=== PATIENT | male | born 1930 | race Caucasian/White ===

== ENCOUNTER 2018-09-04 16:55 | Inpatient (IN) | payer OTHER, MEDICAID ==
[~2018-09-04] VITALS: Ht 160 cm; Wt 83.9 kg
[~2018-09-04 16:55] MED LIST: BECL0.089 INH; HYDR-3229 PO; ISOS10TA9 PO; METO25TE2 PO; TAMS0.4C96 PO
[2018-09-04 17:03] VITALS: BP 118/65
--- NOTE | 2018-09-04 17:09 | NUR ---
PT TAKEN TO BED 11
--- NOTE | 2018-09-04 17:10 | NUR ---
BIB DTR C/O RIGHT ARM PAIN X 2 DAYS, NO INJURY, RIGHT ARM HOT TO TOUCH, PT IS AFRIBILE AT THIS TIME, -ROM, < 3 CAP REFILL . 10/10 PAIN IN R ARM THAT IS NON RADIATING AND CONSIDERED SHARP. DAUGHTER AT BEDSIDE. WILL CONTINUE TO MONITOR. ER MD MADE AWARE. SAFETY PRECAUTIONS IMPLEMENTED. DENIES CP.
--- NOTE | 2018-09-04 17:20 | NUR ---
Dr. Valdez evaluating patient at bedside.
[2018-09-04] MEDS ORDERED: MORPHINE SULFATE 4 MG/ML SYR IVP ONE (17:35)
--- NOTE | 2018-09-04 17:49 | NUR ---
LABS DRAWN AT IV START
[2018-09-04 17:54] LABS: BASOPHILS # (AUTO) 0.1 K/uL (0.00-0.22); BASOPHILS % (AUTO) 0.7 % (0.0-2.0); EOSINOPHILS % (AUTO) 0.2 % (0.0-4.0); HEMATOCRIT 44.6 % (36-52); HEMOGLOBIN 14.4 g/dL (12.0-18.0); LYMPHOCYTES # (AUTO) 0.9 K/uL (2.0-11.5); LYMPHOCYTES % (AUTO) 6.6 % (20.5-51.1); MEAN CORPUSCULAR HEMOGLOBIN 30 pg (27-31); MEAN CORPUSCULAR HGB CONC 32 g/dL (33-37); MONOCYTES # (AUTO) 1.4 K/uL (0.8-1.0); MONOCYTES % (AUTO) 10.9 % (1.7-9.3); NEUTROPHILS # (AUTO) 10.8 K/uL (1.8-7.7); NEUTROPHILS % (AUTO) 81.6 % (42.2-75.2); PLATELET COUNT (AUTO) 182 K/uL (140-450); RED BLOOD CELL COUNT(AUTO) 4.79 MIL/uL (4.20-6.10); WHITE BLOOD COUNT (AUTO) 13.2 K/uL (4.8-10.8)
[2018-09-04 18:03] LABS: ANION GAP 14.3 (8-16); CARBON DIOXIDE 25.1 mmol/L (21-32); CHLORIDE 105 mmol/L (98-107); CREATININE 2.2 mg/dL (0.7-1.3); GLUCOSE 155 mg/dL (74-106); POTASSIUM 4.4 mmol/L (3.5-5.1); SODIUM SERUM 140 mmol/L (136-145); UREA NITROGEN, BLOOD 36 mg/dL (7-18)
[2018-09-04 18:09] LABS: ASPARTATE AMINOTRANSFERASE 18 U/L (15-37)
[2018-09-04 18:12] LABS: PROTHROMBIN TIME 9.9 secs (10.8-13.4)
--- NOTE | 2018-09-04 18:12 | NUR ---
PT. RESTING COMFORTABLY IN BED, RR EVEN AND UNLABORED. VSS. DAUGHTER AT BEDSIDE. WILL CONTINUE TO MONITOR.
--- NOTE | 2018-09-04 18:15 | NUR ---
PT. UNABLE TO PROVIDE URINE AT THIS TIME. MALIHA ESCALANTE MADE AWARE.
[2018-09-04] MEDS ORDERED: methylPREDNISolone SS 125 MG/2 ML VIAL IVP ONE (18:20)
--- NOTE | 2018-09-04 18:22 | NUR ---
X-Ray at bedside.
--- NOTE | 2018-09-04 18:39 | NUR ---
urine collected and given to [employer] tech
[2018-09-04] MEDS: NACL 0.9% 1,000 ML IV SCH ×2 (18:44→21:16)
[2018-09-04] MEDS ORDERED: ONDANSETRON 4 MG/2 ML VIAL IM/IVP PRN (18:45)
[2018-09-04] MEDS ORDERED: PIPERACILLIN/TAZOBACTAM 3.375 GM in DEXTROSE 5% 50 ML IV ONE (18:45)
[2018-09-04] MEDS ORDERED: HYDROcodone/APAP 5/325 MG 1 TAB TAB PO PRN (18:45)
[2018-09-04] MEDS ORDERED: ZOLPIDEM 5 MG TAB PO PRN (18:45)
[2018-09-04] MEDS ORDERED: DOCUSATE SODIUM 100 MG GELCAP PO PRN (18:45)
[2018-09-04] MEDS ORDERED: LORazepam 2 MG/ML VIAL IM/IVP PRN (18:45)
[2018-09-04] MEDS ORDERED: PIPERACILLIN/TAZOBACTAM 3.375 GM VIAL IV ONE (18:54)
[2018-09-04] MEDS ORDERED: ALBUTEROL SULFATE/IPRATROPIU 3 ML SOL IH PRN (18:55)
[2018-09-04 18:57] LABS: APPEARANCE,URINE HAZY (CLEAR); BILIRUBIN,URINE NEGATIVE (NEGATIVE); BLOOD, URINE NEGATIVE (NEGATIVE); COLOR,URINE ORANGE (YELLOW); LEUKOCYTE ESTERASE ,URINE NEGATIVE (NEGATIVE); NITRITE, URINE NEGATIVE (NEGATIVE); UGLUCOSE NEGATIVE (NEGATIVE)
[2018-09-04 18:59] LABS: RBC,URINE 0-5 (RARE) /HPF (0-5); WBC,URINE 6-15 (FEW) /HPF (0-5)
[2018-09-04 19:00] LABS: URINE AMORPHOUS URATE 1+ /HPF (None Seen)
[2018-09-04] MEDS ORDERED: NON-FORMULARY ITEM (Beclomethasone Dipropionate Mdi* (Qvar Hfa Mdi*) 80 MCG) INH SCH (19:00)
--- NOTE | 2018-09-04 19:00 | NUR ---
Admitted from ER TO TELEMETRY UNIT, with chief complaint of PAIN IN RIGHT ARM FOR TWO DAYS,88 y/o ,Male, Cooperative, AWAKE, A/OX4. ADMISSION DATA OBTAINED WITH HELP OF [employer]PLER RADIOACTIVE WASTE SHELLEY #[id number]. RESPIRATION EVEN AND UNLABORED. LUNGS CLEAR ON BILATERAL LUNG AUSCULTATION. 02 SAT - 99% ON ROOM AIR. ABDOMEN SOFT NON-TENDER WITH POSITIVE SOUNDS ON ALL QUADRANTS. ABLE TO AMBULATE WITH A FOUR WHEELED WALKER. IV SALINE LOCK AT THE LEFT FOREARM G20, PATENT AND INTACT. PLAN OF CARE FOR THE SHIFT DISCUSSED WITH PATIENT AND STEP DAUGHTER, VERBALIZED UNDERSTANDING. PAIN IN THE ARM 2/, WILL MEDICATE ORDERED. oriented to call light, bed, phone,television, bathroom, smoking policy,visiting hours, procedures, ID bracelet on. Belongings list checked.
--- NOTE | 2018-09-04 19:04 | NUR ---
Patient will be admitted to care of dr. burk . Admited to tele . Will go to room 122a. Belongings list completed. Report to roberta paula .
[2018-09-04 19:34] LABS: BARBITURATE, URINE NEG. ng/ml (NEG <=200); BENZODIAZEPINE, URINE NEG. ng/mL (NEG <=200); CANNABINOID, URINE NEG. ng/mL (NEG <=50); COCAINE, URINE NEG. ng/mL (NEG <=300); OPIATE, URINE NEG. ng/mL (NEG <=2000); PHENCYCLIDINE SCREEN,URINE NEG. ng/mL (NEG <=25)
[2018-09-04 19:46] LABS: MAGNESIUM 1.9 mg/dL (1.8-2.4); THYROID STIMULATING HORMONE 1.63 uIU/mL (0.34-3.74)
[2018-09-04 20:00] VITALS: BP 139/96
--- NOTE | 2018-09-04 20:45 | NUR ---
ATE 50% OF SANDWICH. STEP DAUGHTER AT THE BEDSIDE.
[2018-09-04] MEDS ORDERED: ISOSORBIDE DINITRATE 10 MG TAB PO SCH (21:00)
[2018-09-04] MEDS ORDERED: METOPROLOL SUCCINATE 50 MG TABER PO SCH (21:00)
[2018-09-04] MEDS: COLCHICINE 0.6 MG TAB PO SCH (21:16)
--- NOTE | 2018-09-04 21:16 | NUR ---
DUE PO MEDICATION GIVEN, TOLERATED WELL.
--- NOTE | 2018-09-04 21:30 | NUR ---
PT UNABLE TO DO IS
[2018-09-04] MEDS ORDERED: INFLUENZA VIRUS VACCINE QUAD 0.5 ML SYR IMVAC PRN (23:20)
[2018-09-05] VITALS: BP 137/82
--- NOTE | 2018-09-05 | NUR ---
SLEEPING COMFORTABLY IN BED, SNORING.
[2018-09-05] MEDS ORDERED: PIPERACILLIN/TAZOBACTAM 2.25 GM in DEXTROSE 5% 50 ML IV SCH (03:00)
[2018-09-05] MEDS ORDERED: PIPERACILLIN/TAZOBACTAM 2.25 GM VIAL IV ONE (03:11)
[2018-09-05 04:00] VITALS: BP 155/84
--- NOTE | 2018-09-05 05:30 | NUR ---
APPLIED BILATERAL LEG SEQUENTIALS.
[2018-09-05] MEDS ORDERED: ALBUTEROL SULFATE/IPRATROPIU 3 ML SOL IH SCH (06:00)
--- NOTE | 2018-09-05 06:55 | NUR ---
RESTING IN BED, NO COMPLAINT OF PAIN. CONDITION REMAIN STABLE.
[2018-09-05 07:10] LABS: HEMATOCRIT 42.4 % (36-52); HEMOGLOBIN 13.8 g/dL (12.0-18.0); MEAN CORPUSCULAR HEMOGLOBIN 30 pg (27-31); MEAN CORPUSCULAR HGB CONC 33 g/dL (33-37); PLATELET COUNT (AUTO) 174 K/uL (140-450); RED BLOOD CELL COUNT(AUTO) 4.55 MIL/uL (4.20-6.10); RED CELL DISTRIBUTION WIDTH 13.7 % (11.6-13.7)
[2018-09-05 07:12] LABS: ANION GAP 14.7 (8-16); CARBON DIOXIDE 21.7 mmol/L (21-32); CHLORIDE 108 mmol/L (98-107); GLUCOSE 171 mg/dL (74-106); POTASSIUM 4.4 mmol/L (3.5-5.1); SODIUM SERUM 140 mmol/L (136-145); UREA NITROGEN, BLOOD 41 mg/dL (7-18)
--- NOTE | 2018-09-05 07:15 | NUR ---
ENDORSED TO BERNIE JOHN FOR CONTINUITY OF CARE.
--- NOTE | 2018-09-05 07:16 | NUR ---
RECEIVED BEDSIDE REPORT FROM SHADING PAINTER NURSE. PATIENT IS AWAKE, ALERT AND ORIENTEDX4. NO SIGNS OF DISTRESS ON RA. SKIN INTACT. IV ON L FA 20G INFUSING NS AT 60. CLEAN, DRY AND INTACT. R ARM IN SLING. TELE MONITOR IN PLACE. PATIENT IS WEAK, FALL RISK PROTOCOL IN PLACE. PATIENT INCONTINENT. BED IN LOW POSITION. CALL LIGHT WITHIN REACH. WILL CONTINUE TO MONITOR THE PATIENT
[2018-09-05 07:21] LABS: MAGNESIUM 2.1 mg/dL (1.8-2.4); PHOSPHORUS 3.2 mg/dL (2.5-4.9)
--- NOTE | 2018-09-05 07:30 | NUR ---
SPECIMEN CUP PLACED ON PATIENT TABLE FOR SPUTUM COLLECTION EDUCATION PROVIDED
[2018-09-05 08:00] VITALS: BP 162/81
--- NOTE | 2018-09-05 08:21 | NUR ---
PATIENT HAS BEEN SCREENED AND CATEGORIZED HIGH NUTRITION RISK. PATIENT WILL BE SEEN WITHIN 1-2 DAYS OF ADMISSION. 09/05/18-09/06/[address]
[2018-09-05] MEDS ORDERED: hydrALAZINE 25 MG TAB PO SCH (09:00)
--- NOTE | 2018-09-05 09:00 | NUR ---
PATIENT AMBULATED W PT
[2018-09-05 09:04] LABS: LYMPHOCYTES % (MANUAL) 5 % (20-46); MONOCYTES % (MANUAL) 3 % (5-12)
[2018-09-05] MEDS: COLCHICINE 0.6 MG TAB PO SCH ×2 (10:00→20:14)
[2018-09-05] MEDS: LACTOBACILLUS RHAMNOSUS GG 1 EACH CAP PO SCH (10:00)
[2018-09-05] MEDS: ASPIRIN 325 MG TAB PO SCH (10:00)
[2018-09-05] MEDS: ATORVASTATIN 20 MG TAB PO SCH (10:00)
[2018-09-05] MEDS: TAMSULOSIN 0.4 MG CAP PO SCH (10:01)
--- NOTE | 2018-09-05 10:03 | NUR ---
ADMINISTERED MEDS. PATIENT TOLERATED WELL. WILL CONTINUE TO MONITOR THE PATIENT.
--- NOTE | 2018-09-05 10:43 | NUR ---
Speech Therapy bedside swallow eval completed. Please see report for details. Pt presents with adequate oropharyngeal swallow function for textures given. No overt s/s aspiration observed. Pt able to gum saltine crackers without dentures, which are reportedly at home and that pt reported he noramlly wears for eating. Recommend: 1) Advance to mechanical soft ground diet, thin liquids okay. 2) P.O. meds whole one at a time. No further swallow tx indicated at this time as pt appears to be functioning at baseline level. Dc to ns care. Time in/out [id number] [id number] CH G8997 CH G8998 CH LEO NOMS LEVEL 1
[2018-09-05 12:00] VITALS: BP 127/70
--- NOTE | 2018-09-05 12:00 | NUR ---
PATIENT IS WATCHING TV. NO SIGNS OF DISTRESS. ON RA. WILL CONTINUE TO MONITOR THE PATIENT
[2018-09-05] MEDS: NACL 0.9% 1,000 ML IV SCH (13:10)
[2018-09-05] MEDS: ACETAMINOPHEN 325 MG TAB PO PRN (13:10)
[2018-09-05] MEDS: PIPER/TAZO 2.25GM/D5W PREMIX 50 ML IV SCH ×2 (13:10→20:14)
[2018-09-05] MEDS: ALBUTEROL SULFATE/IPRATROPIU 3 ML SOL IH SCH ×2 (13:53→19:25)
--- NOTE | 2018-09-05 13:54 | NUR ---
AWAKE AND ALERT RESPONSIVE TO ADMINISTRATIVE LIAISON VERBAL COMMANDS ENCOURAGED DEEP BREATH AND COUGH DURING THERAPY TO FACILITATE SECRETIONS PATIENT UNABLE TO PRODUCE SPUTUM SAMPLE AT THIS TIME
--- NOTE | 2018-09-05 14:00 | NUR ---
PATIENT SHOWS NO SIGNS OF DISTRESS. WILL CONTINUE TO MONITOR THE PATIENT. TOLD PATIENT I NEED A URINE SAMPLE. WILL COLLECT WHEN PATIENT URINATES
--- NOTE | 2018-09-05 14:51 | NUR ---
AWAKE AND ALERT ENCOURAGED PATIENT WITH ACKNOWLEDGEMENT TO USE INCENTIVE SPIROMETRY EVERY 1-2 HOURS WHILE AWAKE
--- NOTE | 2018-09-05 15:58 | NUR ---
09/05/18 RD INITIAL ASSESSMENT COMPLETED PLEASE REFER TO NUTRITION ASSESSMENT UNDER CARE ACTIVITY FOR ESTIMATED NUTRITIONAL NEEDS. 1. CONTINUE PUREE DIET TOLERATED 2. DIETITIAN PROVIDED RENAL NUTRITIONAL EDUCATION 3. DIETITIAN RECOMMENDS A RENAL PUREE DIET 4. RD TO FOLLOW-UP 3-5 DAYS, MODERATE RISK ANDERSON HAMMOND RD
[2018-09-05 16:00] VITALS: BP 113/59
--- NOTE | 2018-09-05 16:45 | NUR ---
DAUGHTER AT BEDSIDE. PATIENT COMMUNICATING WITH DAUGHTER. PATIENT WAS TRANSFERRED TO ROOM 121A.
--- NOTE | 2018-09-05 17:20 | NUR ---
PATIENT IS WATCHING TV. STILL NO URINE SAMPLE. WILL CONTINUE TO MONITOR THE PATIENT.
--- NOTE | 2018-09-05 19:15 | NUR ---
gave bedside report to table games shift manager nurse. patient endorsed in stable condition
--- NOTE | 2018-09-05 19:16 | NUR ---
RECEIVED BEDSIDE REPORT FROM DAY SHIFT RN. PT IS NORWEGIAN SPEAKING ONLY. IS A&O X4. PT IN NO DISTRESS ON RA. RESPIRATIONS ARE EQUAL. HAS IV ON LEFT FA INFUSING NS AT 60ML/H. SKIN IS INTACT. HAS R ARM SLING. PT IS INCONTINENT. PT AWARE OF NEED TO OBTAIN URINE SPECIMEN. PT ON FALL PRECAUTION. BED ALARM ON AND LOWEST POSITION. CALL LIGHT WITHIN REACH.
--- NOTE | 2018-09-05 20:14 | NUR ---
DUE MEDICATIONS GIVEN PATIENT TOLERATED WELL. CALL LIGHT WITHIN REACH.
[2018-09-05 23:34] VITALS: BP 106/50
--- NOTE | 2018-09-05 23:38 | NUR ---
PT SLEEPING COMFORTABLY IN BED IS EASILY AROUSABLE. VITAL SIGNS ARE WITHIN NORMAL LIMITS. NO DISTRESS NOTED. SAFETY MEASURES IN PLACE WILL CONTINUE TO MONITOR.
--- NOTE | 2018-09-06 01:51 | NUR ---
PT SLEEPING IN BED. NO DISTRESS NOTED. SAFETY MEASURES IN PLACE. CALL LIGHT WITHIN REACH.
--- NOTE | 2018-09-06 04:00 | NUR ---
PT SLEEPING NO DISTRESS NOTED. CALL LIGHT WITHIN REACH.
[2018-09-06] MEDS: PIPER/TAZO 2.25GM/D5W PREMIX 50 ML IV SCH ×3 (04:08→21:03)
[2018-09-06] MEDS: NACL 0.9% 1,000 ML IV SCH ×2 (04:08→21:24)
--- NOTE | 2018-09-06 05:20 | NUR ---
CLEANED PATIENT AND CHANGED BED LINEN. PT TOLERATED WELL SAFETY MEASURES IN PLACE. CALL LIGHT WITHIN REACH.
[2018-09-06] MEDS: ACETAMINOPHEN 325 MG TAB PO PRN ×2 (06:31→14:12)
[2018-09-06 06:36] LABS: BASOPHILS % (AUTO) 0.1 % (0.0-2.0); HEMATOCRIT 37.6 % (36-52); LYMPHOCYTES # (AUTO) 0.7 K/uL (2.0-11.5); LYMPHOCYTES % (AUTO) 5.5 % (20.5-51.1); MEAN CORPUSCULAR HEMOGLOBIN 30 pg (27-31); MEAN CORPUSCULAR HGB CONC 32 g/dL (33-37); MONOCYTES # (AUTO) 0.8 K/uL (0.8-1.0); MONOCYTES % (AUTO) 6.6 % (1.7-9.3); NEUTROPHILS # (AUTO) 10.6 K/uL (1.8-7.7); NEUTROPHILS % (AUTO) 87.8 % (42.2-75.2); PLATELET COUNT (AUTO) 175 K/uL (140-450); RED BLOOD CELL COUNT(AUTO) 4.04 MIL/uL (4.20-6.10); RED CELL DISTRIBUTION WIDTH 13.8 % (11.6-13.7); WHITE BLOOD COUNT (AUTO) 12.1 K/uL (4.8-10.8)
[2018-09-06 07:03] LABS: MAGNESIUM 1.8 mg/dL (1.8-2.4); PHOSPHORUS 3.9 mg/dL (2.5-4.9)
[2018-09-06] MEDS: ALBUTEROL SULFATE/IPRATROPIU 3 ML SOL IH SCH ×3 (07:05→19:03)
--- NOTE | 2018-09-06 07:20 | NUR ---
ENDORSED PT TO DAY SHIFT RN. PT IN STABLE CONDITION.
--- NOTE | 2018-09-06 07:21 | NUR ---
RECEIVED BEDSIDE REPORT FROM WHITEWATER RAFTING GUIDE NURSE. PATIENT IS AWAKE, ALERT AND ORIENTEDX4. NO SIGNS OF DISTRESS. GERMAN SPEAKER. HE IS WEAK, AMBULATE W ASSIST. FALL RISK PROTOCOL IN PLACE. SKIN IS INTACT. R ARM IN SLING. MED SURGE PATIENT. L FA 20G INFUSING NS AT 60. CLEAN, DRY AND INTACT. PATIENT HAS URINAL AT BEDSIDE. BED IN LOW POSITION. CALL LIGHT WITHIN REACH. WILL CONTINUE TO MONITOR THE PATIENT
[2018-09-06 07:29] LABS: ANION GAP 15.1 (8-16); CARBON DIOXIDE 20.1 mmol/L (21-32); CHLORIDE 108 mmol/L (98-107); CREATININE 2.6 mg/dL (0.7-1.3); GLUCOSE 135 mg/dL (74-106); POTASSIUM 4.2 mmol/L (3.5-5.1); SODIUM SERUM 139 mmol/L (136-145); UREA NITROGEN, BLOOD 57 mg/dL (7-18)
[2018-09-06 08:00] VITALS: BP 104/57
[2018-09-06] MEDS: ATORVASTATIN 20 MG TAB PO SCH (08:36)
[2018-09-06] MEDS: ASPIRIN 325 MG TAB PO SCH (08:36)
[2018-09-06] MEDS: LACTOBACILLUS RHAMNOSUS GG 1 EACH CAP PO SCH (08:37)
[2018-09-06] MEDS: COLCHICINE 0.6 MG TAB PO SCH ×2 (08:37→21:04)
[2018-09-06] MEDS: TAMSULOSIN 0.4 MG CAP PO SCH (08:37)
--- NOTE | 2018-09-06 08:41 | NUR ---
ADMINISTERED MEDS. PATIENT TOLERATED WELL. PATIENT IS EATING BREAKFAST. WILL CONTINUE TO MONITOR THE PATIENT.
--- NOTE | 2018-09-06 10:25 | NUR ---
PATIENT REQUESTS URINAL. GAVE PATIENT A URINAL. NO OTHER COMPLAINTS AT THIS TIME. WILL CONTINUE TO MONITOR THE PATIENT
--- NOTE | 2018-09-06 11:46 | NUR ---
PATIENT IS SLEEPING. NO SIGNS OF DISTRESS ON RA. WILL CONTINUE TO MONITOR THE PATIENT
--- NOTE | 2018-09-06 12:07 | NUR ---
ADMINISTERED MEDS. PATIENT TOLERATING WELL. IV IS CLEAN, DRY AND INTACT.
--- NOTE | 2018-09-06 12:58 | NUR ---
PATIENT WATCHING TV, NO SIGNS OF DISTRESS ON RA. WILL CONTINUE TO MONITOR THE PATIENT
--- NOTE | 2018-09-06 14:00 | NUR ---
STEP DAUGHTER SAID PATIENT DOES NOT WANT TO BE TRANSFERRED TO A SNF UNLESS THE STEP DAUGHTER IS PRESENT. STEP DAUGHTER SAID SHE WILL COME BACK TOMORROW AFTER 1. SHE GETS OFF WORK AT 1. DR FLOWER IS AWARE
--- NOTE | 2018-09-06 15:57 | NUR ---
DIETITIAN RECOMMENDS RENAL MECHANICALLY SOFT DIET
[2018-09-06 16:00] VITALS: BP 133/70
--- NOTE | 2018-09-06 16:00 | NUR ---
VITALS ARE STABLE. PATIENT HAS NO COMPLAINTS AT THIS TIME. WILL CONTINUE TO MONITOR THE PATIENT
--- NOTE | 2018-09-06 17:21 | NUR ---
PATIENT IS SLEEPING. NO SIGNS OF DISTRESS. WILL CONTINUE TO MONITOR THE PATIENT
--- NOTE | 2018-09-06 19:20 | NUR ---
GAVE BEDSIDE REPORT TO MATERIALS HANDLING COORDINATOR NURSE. PATIENT ENDORSED IN STABLE CONDITION
--- NOTE | 2018-09-06 19:21 | NUR ---
RECEIVED REPORT FROM DAY SHIFT NURSE DORA-RN AT BEDSIDE. PT RESTING IN BED, AOX4- YAKUT SPEAKER, ON ROOM AIR, AMBULATORY WITH ASSISTANCE, WHEELCHAIR BOUND, SKIN INTACT WITH RIGHT ARM IN SLING, WITH LEFT FA #22G RUNNING NS AT 60ML/HR. DISCUSSED PLAN OF CARE AND PT VERBALIZED UNDERSTANDING. NO S/S OF RESPIRATORY DISTRESS OR DISCOMFORT NOTED AT THIS TIME. BED IN LOWEST POSITION, BED BREAKS ON, BOTH SIDE RAILS UP, BED ALARM ON AND FALL PRECAUTIONS IN PLACE. BEDSIDE TABLE AND CALL LIGHT ARE WITHIN REACH. WILL CONTINUE TO MONITOR.
[2018-09-06 20:00] VITALS: BP 140/82
--- NOTE | 2018-09-06 20:00 | NUR ---
VITAL SIGNS TAKEN AND TOLERATED WELL. NO S/S OF RESPIRATORY DISTRESS OR DISCOMFORT NOTED AT THIS TIME. WILL CONTINUE TO MONITOR.
--- NOTE | 2018-09-06 21:11 | NUR ---
SCHEDULED MEDICATION GIVEN AND TOLERATED WELL. NO S/S OF RESPIRATORY DISTRESS OR DISCOMFORT NOTED AT THIS TIME. WILL CONTINUE TO MONITOR.
--- NOTE | 2018-09-06 23:00 | NUR ---
PT SLEEPING IN BED. NO S/S OF RESPIRATORY DISTRESS OR DISCOMFORT NOTED AT THIS TIME. WILL CONTINUE TO MONITOR.
[2018-09-07] VITALS: BP 162/86
--- NOTE | 2018-09-07 | NUR ---
VITAL SIGNS TAKEN AND TOLERATED WELL. ELEVATED BP NOTED. WILL REASSESS. NO S/S OF RESPIRATORY DISTRESS OR DISCOMFORT NOTED AT THIS TIME. WILL CONTINUE TO MONITOR.
--- NOTE | 2018-09-07 00:30 | NUR ---
BP CONTINUES TO BE ELEVATED. SPOKE TO DR. FELIX AND SHE WILL PLACE AN ORDER FOR HYDRALAZINE TO BE GIVEN.
[2018-09-07] MEDS ORDERED: hydrALAZINE 20 MG/ML VIAL IVP ONE (01:15)
--- NOTE | 2018-09-07 01:30 | NUR ---
IV SITE LEAKING. OLD DRESSING CAREFULLY REMOVED AND NEW DRESSING PLACED HOWEVER IV SITE CONTINUES TO LEAK. NEW IV INSERTED IN LEFT FA #22G- PATENT AND FLUSHING WELL. INSERTED ON FIRST ATTEMPT BY MARKETING SALES CONSULTANT NURSE JUNITO-BERNIE. PT TOLERATED WELL.
--- NOTE | 2018-09-07 01:40 | NUR ---
HYDRALAZINE GIVEN AND TOLERATED WELL. NO S/S OF RESPIRATORY DISTRESS OR DISCOMFORT NOTED AT THIS TIME. WILL CONTINUE TO MONITOR.
--- NOTE | 2018-09-07 02:00 | NUR ---
PT CONTINUES TO SLEEP IN BED. NO S/S OF RESPIRATORY DISTRESS OR DISCOMFORT NOTED AT THIS TIME. WILL CONTINUE TO MONITOR.
--- NOTE | 2018-09-07 04:00 | NUR ---
PT CONTINUES TO SLEEP. NO S/S OF RESPIRATORY DISTRESS OR DISCOMFORT NOTED AT THIS TIME. WILL CONTINUE TO MONITOR.
[2018-09-07] MEDS: PIPER/TAZO 2.25GM/D5W PREMIX 50 ML IV SCH ×2 (04:44→12:25)
--- NOTE | 2018-09-07 04:44 | NUR ---
SCHEDULED MEDICATION ZOSYN GIVEN AND TOLERATED WELL. NO S/S OF RESPIRATORY DISTRESS OR DISCOMFORT NOTED AT THIS TIME. WILL CONTINUE TO MONITOR.
--- NOTE | 2018-09-07 06:00 | NUR ---
PT CONTINUES TO SLEEP IN BED. NO S/S OF RESPIRATORY DISTRESS OR DISCOMFORT NOTED AT THIS TIME. WILL CONTINUE TO MONITOR.
[2018-09-07 06:35] LABS: BASOPHILS % (AUTO) 0.5 % (0.0-2.0); EOSINOPHILS # (AUTO) 0.5 K/uL (0-0.4); EOSINOPHILS % (AUTO) 5.4 % (0.0-4.0); HEMATOCRIT 37.5 % (36-52); HEMOGLOBIN 12.2 g/dL (12.0-18.0); LYMPHOCYTES % (AUTO) 11.5 % (20.5-51.1); MEAN CORPUSCULAR HEMOGLOBIN 30 pg (27-31); MEAN CORPUSCULAR HGB CONC 33 g/dL (33-37); MEAN CORPUSCULAR VOLUME 92.7 fL (80-94); MONOCYTES # (AUTO) 0.8 K/uL (0.8-1.0); MONOCYTES % (AUTO) 8.6 % (1.7-9.3); NEUTROPHILS # (AUTO) 6.5 K/uL (1.8-7.7); PLATELET COUNT (AUTO) 208 K/uL (140-450); RED BLOOD CELL COUNT(AUTO) 4.04 MIL/uL (4.20-6.10); RED CELL DISTRIBUTION WIDTH 13.3 % (11.6-13.7); WHITE BLOOD COUNT (AUTO) 8.8 K/uL (4.8-10.8)
[2018-09-07 07:08] LABS: ANION GAP 15.8 (8-16); CARBON DIOXIDE 20.6 mmol/L (21-32); CHLORIDE 110 mmol/L (98-107); CREATININE 2.2 mg/dL (0.7-1.3); GLUCOSE 105 mg/dL (74-106); POTASSIUM 4.4 mmol/L (3.5-5.1); SODIUM SERUM 142 mmol/L (136-145); UREA NITROGEN, BLOOD 51 mg/dL (7-18)
[2018-09-07 07:10] LABS: MAGNESIUM 1.9 mg/dL (1.8-2.4); PHOSPHORUS 3.2 mg/dL (2.5-4.9)
--- NOTE | 2018-09-07 07:33 | NUR ---
ENDORSED PT CARE TO DAY SHIFT NURSE OLU-RN FOR CONTINUITY OF CARE.
--- NOTE | 2018-09-07 07:34 | NUR ---
RECEIVED BEDSIDE REPORT FROM PM SHIFT NURSE JERILYN. PT LYING IN BED, AWAKE, VERBALLY RESPONSIVE, NO C/O PAIN OR DISCOMFORT. RESPIRATIONS EVEN & UNLABORED. CALL LIGHT WITHIN REACH.
[2018-09-07] MEDS: ALBUTEROL SULFATE/IPRATROPIU 3 ML SOL IH SCH ×2 (07:55→13:19)
[2018-09-07 08:00] VITALS: BP 158/83
[2018-09-07] MEDS: ATORVASTATIN 20 MG TAB PO SCH (08:56)
[2018-09-07] MEDS: TAMSULOSIN 0.4 MG CAP PO SCH (08:56)
[2018-09-07] MEDS: COLCHICINE 0.6 MG TAB PO SCH (08:56)
[2018-09-07] MEDS: ASPIRIN 325 MG TAB PO SCH (08:57)
[2018-09-07] MEDS: LACTOBACILLUS RHAMNOSUS GG 1 EACH CAP PO SCH (08:57)
--- NOTE | 2018-09-07 09:15 | NUR ---
PT AMB WITH PT. NO SIGNS OF DISTRESS, NO C/O PAIN OR DISCOMFORT.
[2018-09-07] MEDS ORDERED: LACT10CA1 PO (10:41)
[2018-09-07] MEDS ORDERED: COL.6 PO (10:41)
[2018-09-07] MEDS ORDERED: ZOS2.25PM IV (10:41)
--- NOTE | 2018-09-07 10:46 | NUR ---
RECEIVED ORDER FOR PATIENT TO GO TO [facility] FOR PT AND IV ANTIBIOTICS. I SPOKE WITH DR. FLOWER AND SHE SAID SHE SPOKE WITH THE PATIENT AND DAUGHTER. CALLED [facility] AND SPOKE WITH JUDAH AND FAXED INQUIRY TO HER AT [phone].
--- NOTE | 2018-09-07 11:26 | NUR ---
RECEIVED A CALL FROM VERITO FROM [facility]. THE PATIENT CAN GO TO ROOM 207A UNDER DR. HERNANDEZ. CALL REPORT TO [phone] STATION 3. VERITO SAID HE WOULD ARRANGE TRANSPORT. I INFORMED DR. FLOWER.. I INFORMED CARLYN GIBBSMARINA PORTER NURSE.
--- NOTE | 2018-09-07 11:40 | NUR ---
SPOKE TO CHARMAINE (STEP DAUGHTER) ON THE PHONE & NOTIFIED OF PT'S PENDING TRANSFER TO [facility] ROOM 207A. [facility] REP TO ARRANGE TRANSPORTATION. VERBALIZED UNDERSTANDING. PER CHARMAINE, SHE WILL BE COMING TO SEE PT THIS AFTERNOON, REQUESTS TO GET CALL BACK ONCE TRANSPORTATION HAS BEEN ARRANGED. CHARMAINE CONFIRMED HER CALL BACK # [phone]. PT CURRENTLY LYING IN BED, WATCHING TV, NO C/O PAIN OR DISCOMFORT. CALL LIGHT WITHIN REACH. RIGHT ARM SLING IN PLACE.
--- NOTE | 2018-09-07 12:04 | NUR ---
RECEIVED A CALL FROM VERITO FROM [facility]. ANNAMARIE WILL TITLE CLERK AUTOMOBILE THE PATIENT BETWEEN 12:30 AND 1:30. CARLYN GIBBSPULPING MACHINE OPERATOR NURSE AWARE.
--- NOTE | 2018-09-07 12:30 | NUR ---
REPORT GIVEN TO JOVAN GIBBS FROM [facility] VIA PHONE. JOVAN CONFIRMED PT'S ROOM # 207A.
--- NOTE | 2018-09-07 13:00 | NUR ---
VERBAL & WRITTEN DISCHARGE INSTRUCTIONS PROVIDED TO PT WITH CHARMAINE (STEP DAUGHTER) ON SPEAKERPHONE. VERBALIZED UNDERSTANDING.
--- NOTE | 2018-09-07 13:32 | NUR ---
PT LEFT AT THIS TIME VIA GURNEY TO [facility]. PT AAOx4, NO C/O PAIN OR DISCOMFORT. LEFT FOREARM IV ON SALINE LOCK, ASYMPTOMATIC. ALL BELONGINGS WITH PT UPON DISCHARGE.
== END 2018-09-07 13:32 | DRG 871 ==
LOC: MED 16:55 → MTU 18:47
PROVIDERS: ADMIT General Practice; ATTEND General Practice
DX: A41.9 Sepsis, unspecified organism (principal); J69.0 Pneumonitis due to inhalation of food and vomit; N17.0 Acute kidney failure with tubular necrosis; N18.6 End stage renal disease; E44.0 Moderate protein-calorie malnutrition; N39.0 Urinary tract infection, site not specified; I12.0 Hypertensive chronic kidney disease with stage 5 chronic kidney disease or end stage renal disease; M10.9 Gout, unspecified; J44.9 Chronic obstructive pulmonary disease, unspecified; I25.10 Atherosclerotic heart disease of native coronary artery without angina pectoris; N40.0 Benign prostatic hyperplasia without lower urinary tract symptoms; Z66 Do not resuscitate; Z79.899 Other long term (current) drug therapy; Z95.5 Presence of coronary angioplasty implant and graft; Z87.891 Personal history of nicotine dependence; Z23 Encounter for immunization
CPT/HCPCS: 36415; 71045; 73090; 73110; 80048; 80053; 80305; 81001; 83036; 83605; 83690; 83735; 83880; 84100; 84134; 84443; 84484; 84550; 85025; 85610; 85730; 87040; 87070; 87081; 87086; 87205; 90658; 92610; 93005; 94640; 96374; 96375; 97110; 97116; 97530; 99285; J0360; J1644; J2270; J2543; J2930; J7030; J7060; J7620; Q0092